=== PATIENT | male | born 1960 | race Caucasian/White ===

== ENCOUNTER 2017-09-27 12:26 | Day surgery (SDC) | payer OTHER ==
[2017-09-27] MEDS ORDERED: Ringers Lactate 1,000 ML IV ONE (12:53)
[2017-09-27] MEDS ORDERED: NA CIT/CITRIC AC 30 ML ORAL UDC ONE (13:03)
[2017-09-27] MEDS ORDERED: NA CIT/CITRIC AC 30 ML ORAL UDC PO ONE (13:08)
[2017-09-27] MEDS ORDERED: LIDOCAINE 1% MPF 5 ML VIAL ONE (14:50)
[2017-09-27] MEDS ORDERED: PROPOFOL 200 MG/20 ML VIAL IV ONE (14:50)
[2017-09-27] MEDS ORDERED: MIDAZOLAM HCL 2 MG/2 ML INJ ONE (14:50)
[2017-09-27] MEDS ORDERED: FENTANYL CITR 100 MCG/2 ML ONE (14:57)
--- NOTE | 2017-09-28 01:44 | OP ---
Date of Procedure: 09/27/2017 Surgeon: Arturo Santiago MD Procedure Performed: Colonoscopy. Anesthesia: By Department of Anesthesia. Indication: History of polyp. Premedication: Per Anesthesia. Complexity: Moderate. Tolerance To Sedation: Excellent. [place] Preps: Right 2/3, mid 2/3, left 2/3, total 6/. Procedure In Detail: The procedure, possible complications, and alternatives including, but not limi tip to the possibility of bleeding, perforation, tear, infection, sepsis, need for surgery, need for blood transfusion, anesthesia-related problem including rare fatalities in infallibility and guarante e of any medical tests had been explained to the patient. Informed consent was obtained. He was teagan arely in left lateral position. After appropriate level of anesthesia, digital anorectal examination w as within normal range. Forward view retroflexion in this area was fine. Mucosa of the sigmoid colon, descending colon, splenic flexure, transverse colon, hepatic flexure, as cending colon, cecum, and ileocecal valve area appeared to be generally within normal range. Repeate d visualization did not reveal any additional information or diagnosis. Having done the above procedure in a safe, diligent, and satisfactory manner, endoscope and rest of t he endoscopic accessories were removed. The patient's oropharyngeal area was cleaned out in a respec tful manner. The patient has been sent in excellent condition to postoperative recovery and from the re to the home. Impression: Normal colonoscopy to cecum. Plan: Follow up in office. Followup colonoscopy in 5 years unless symptoms change. Complications: None. The patient tolerated the procedure well. Disposition: As above. ALEXY/CHENG Voice ID: [id number] Report ID: [id number]
== END 2017-09-27 15:55 | disposition home or self-care (01) ==
LOC: ENDO 12:26
PROVIDERS: ATTEND Internal Medicine Gastroenterology
PROC: 0DJD8ZZ Inspection of Lower Intestinal Tract, Via Natural or Artificial Opening Endoscopic (ICD-10-PCS; principal; 2017-09-27 13:45)
DX: Z86.010 Personal history of colon polyps (principal); K21.9 Gastro-esophageal reflux disease without esophagitis
CPT/HCPCS: 45378; J2250; J3010

== ENCOUNTER 2023-03-05 09:27 | Emergency (ER) | payer OTHER ==
[2023-03-05] MEDS ORDERED: CEFAZOLIN SODIUM 1 GM/VIAL ONE (09:49)
[2023-03-05] MEDS ORDERED: MORPHINE 4 MG/ML SYR ONE (09:50)
[2023-03-05] MEDS ORDERED: TDAP (DIPHTH,PERTUSS(ACELL),TET VAC) 0.5 ML VIAL IMVAC ONE (09:50)
[2023-03-05] MEDS ORDERED: NA CHLORIDE 0.9% 1,000 ML ONE (09:50)
[2023-03-05] MEDS ORDERED: ONDANSETRON 4 MG/2 ML VIAL ONE (09:50)
[2023-03-05] MEDS ORDERED: LORazepam 2 MG/ML VIAL ONE (09:50)
[2023-03-05] MEDS ORDERED: NA CHLORIDE 0.9% 100 ML ONE (09:50)
--- NOTE | 2023-03-05 09:51 | ER ---
Nurse's Notes [facility] Name: Kip Mccallum Age: 62 yrs Sex: Male : 1960 Arrival Date: 03/05/2023 Time: 09:27 Bed 3 Private MD: Diagnosis: Laceration of radial artery at wrist and hand level of right arm, initial encounter;Hypotension, unspecified-resolved, secondary to acute blood loss Presentation: 03/05 09:29 Chief complaint: EMS states: toned out to patient home for laceration to right wrist- ld1 glass bookcase fell over onto patient. Hit head and body. C/O pain to right wrist. Pt arrived via EMS with self tourniquet to right AC. Dr. Zaman at bedside with patient. Coronavirus screen: At this time, the client does not indicate any symptoms associated with coronavirus-19. Ebola Screen: No symptoms or risks identified at this time. Initial Sepsis Screen: Does the patient meet any 2 criteria? No. Patient's initial sepsis screen is negative. Does the patient have a suspected source of infection? No. Patient's initial sepsis screen is negative. Risk Assessment: Do you want to hurt yourself or someone else? Patient reports no desire to harm self or others. Onset of symptoms was March 05, 2023. 09:29 Method Of Arrival: EMS: [facility] ld1 09:29 Acuity: JAZZY 2 ld1 Triage Assessment: 09:31 General: Appears in no apparent distress. uncomfortable, Behavior is cooperative, ld1 anxious. Pain: Complains of pain in right wrist Pain does not radiate. Pain currently is 10 out of 10 on a pain scale. Quality of pain is described as throbbing, Pain began suddenly. EENT: No signs and/or symptoms were reported regarding the EENT system. Neuro: Level of Consciousness is awake, alert, obeys commands, Oriented to person, place, time, situation. Cardiovascular: Capillary refill < 3 seconds Patient's skin is warm and dry. Rhythm is sinus rhythm. Respiratory: Airway is patent Respiratory effort is even, unlabored. GI: Abdomen is round non-distended. : No signs and/or symptoms were reported regarding the genitourinary system. Derm: No signs and/or symptoms reported regarding the dermatologic system. Musculoskeletal: No signs and/or symptoms reported regarding the musculoskeletal system. Injury Description: Laceration sustained to right wrist is clean, bleeding profusely, was sustained 1-2 hours ago. 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 - Social history:: Smoking status: Patient denies any tobacco usage or history of. Patient/guardian denies using alcohol. Screenin:33 [facility] ED Fall Risk Assessment (Adult) History of falling in the last 3 months, ld1 including since admission No falls in past 3 months (0 pts). Abuse screen: Denies threats or abuse. Denies injuries from another. Nutritional screening: No deficits noted. Tuberculosis screening: No symptoms or risk factors identified. Assessment: 09:33 Reassessment: See triage assessment. ld1 10:01 Reassessment: No changes from previously documented assessment. EMS at bedside with ld1 family transporting patient to medical center. ERP removed cable tourniquet from right AC. EMS applied new tourniquet for patient transport to medical center. Bleeding controlled at this time - applied pressure dressing to right wrist with wrist splint. 10:01 Reassessment: Patient appears in no apparent distress at this time. Patient is alert, ld1 oriented x 3, equal unlabored respirations, skin warm/dry/pink. Vital Signs: 09:29 BP 134 / 92; Pulse 100; Resp 12; Temp 97.5(O); Pulse Ox 100% on R/A; Weight 75.3 kg; ld1 Height 5 ft. 8 in. ; Pain 10/10; 09:55 Pulse 89; Resp 18; Pulse Ox 100% on R/A; ld1 10:01 BP 142 / 99; Pulse 89; Resp 20; Pulse Ox 100% on R/A; Pain 7/10; ld1 09:29 Body Mass Index 25.24 (75.30 kg, 172.72 cm) ld1 09:29 Pain Scale: Adult ld1 10:01 Pain Scale: Adult ld1 ED Course: 09:28 Patient arrived in ED. bd 09:28 Tej Frost MD is Attending Physician. nohemi 09:29 Sury Manrique, HERVE is Primary Nurse. ld1 09:31 Triage completed. ld1 09:31 Arm band placed on. EKG completed in triage. Results shown to MD. ld1 09:33 Patient has correct armband on for positive identification. Placed in gown. Bed in low ld1 position. Call light in reach. Side rails up X2. technical professional on. Pulse ox on. NIBP on. Door closed. Noise minimized. Warm blanket given. 09:33 Inserted saline lock: 18 gauge in left forearm, using aseptic technique. Blood ld1 collected. Maintain EMS IV. Dressing intact. Good blood return noted. Site clean \T\ dry. Gauge \T\ site: 18G LAC. 09:51 Hand Right 3 View In Process Unspecified. EDMS 09:53 Chest Single View XRAY In Process Unspecified. EDMS 10:05 No provider procedures requiring assistance completed. Patient transferred, IV remains ld1 in place. Administered Medications: 09:46 Drug: Ativan IVP 1 mg IVP once Route: IVP; Site: left forearm; ld1 09:51 Drug: Tetanus Toxoid,Adsorbed IM 0.5 ml IM once; Provide Vaccine Information Statement ld1 (VIS). {Chicken Cleaner: [employer]; Exp: Sat Oct 24 2024; Lot #: [id number]; Series: 1 of 1; Patient Consent: Obtained; Date/Time: ; Source Name: Kip Mccallum; Source Relationship: Self; Address Information: [address] [place] [address] [address] [place] [address]; ; Education: Provided; VIS Presented Date: ; VIS Publication: Tetanus/Diphtheria (Td) Vaccine VIS 09/11/2016 (historic)} Route: IM; Site: left deltoid; 09:54 Drug: morphine IVP or IV 4 mg IVP once over 4 mins Route: IVP; Infused Over: 4 mins; ld1 Site: left forearm; 09:54 Drug: Ondansetron IVP 4 mg IVP once; over 2 minutes Route: IVP; Site: left antecubital; ld1 09:54 Drug: NS 0.9% IV 1000 ml IV at 1 bolus Per protocol; 1000 mL bolus Route: IV; Rate: 1 ld1 bolus; Site: left forearm; 09:55 Drug: ceFAZolin IVPB 2 grams IVPB once over 30 mins; (mix in 100 mL NS) Route: IVPB; ld1 Infused Over: 30 mins; Site: left forearm; Medication: 10:05 Vaccine Information Statement (VIS) provided today. Questions and/or concerns ld1 addressed. VIS edition date: March 05, 2023. Outcome: 09:51 ER care complete, transfer ordered by MD. song 10:05 Transferred by ground EMS to [facility], ld1 10:05 Condition: stable 10:05 Instructed on the need for transfer, 10:16 Patient left the ED. ld1 Signatures: Dispatcher [employer] EDBatsheva Campos Corey, MD MD cha Sims, Lauren, HERVE RN ld1
--- NOTE | 2023-03-05 09:51 | EDPHYS ---
Physician Documentation [facility] Name: Kip Mccallum Age: 62 yrs Sex: Male : 1960 Arrival Date: 03/05/2023 Time: 09:27 Bed 3 Private MD: ED Physician Tej Frost HPI: 03/05 09:34 This 62 yrs old Male presents to ER via EMS with complaints of right wrist nohemi laceration. 09:34 The patient or guardian reports decreased range of motion, pain. The complaints affect nohemi the. Historical: - Allergies: 09:31 NSAIDS; ld1 - PMHx: 09:31 BPH; chronic back pain; Anxiety; ld1 - Immunization history:: Adult Immunizations up to date. - Social history:: Smoking status: Patient denies any tobacco usage or history of. Patient/guardian denies using alcohol. ROS: 09:44 Constitutional: Negative for fever, chills, and weight loss, Eyes: Negative for injury, nohemi pain, redness, and discharge, ENT: Negative for injury, pain, and discharge, Neck: Negative for injury, pain, and swelling, Cardiovascular: Negative for chest pain, palpitations, and edema, Respiratory: Negative for shortness of breath, cough, wheezing, and pleuritic chest pain, Abdomen/GI: Negative for abdominal pain, nausea, vomiting, diarrhea, and constipation, Back: Negative for injury and pain, : Negative for injury, bleeding, discharge, and swelling, Skin: Negative for injury, rash, and discoloration, Neuro: Negative for headache, weakness, numbness, tingling, and seizure, Psych: Negative for depression, anxiety, suicide ideation, homicidal ideation, and hallucinations, Allergy/Immunology: Negative for hives, rash, and allergies, Endocrine: Negative for neck swelling, polydipsia, polyuria, polyphagia, and marked weight changes, Hematologic/Lymphatic: Negative for swollen nodes, abnormal bleeding, and unusual bruising, 09:44 MS/extremity: Positive for decreased range of motion, laceration, pain, tenderness, of the right wrist, Exam: :44 Hand exam: Exam is positive for decreased range of motion, laceration, pulse nohemi abnormalities, tenderness, ROM: limited active range of motion due to pain, limited passive range of motion due to pain, Circulation is intact in all extremities. numbness, decreased sensation, Compartment Syndrome exam of affected extremity: is normal. Tendon exam: unable to examine 09:44 Head/Face: Normocephalic, atraumatic. Eyes: Pupils equal round and reactive to light, extra-ocular motions intact. Lids and lashes normal. Conjunctiva and sclera are non-icteric and not injected. Cornea within normal limits. Periorbital areas with no swelling, redness, or edema. ENT: Nares patent. No nasal discharge, no septal abnormalities noted. Tympanic membranes are normal and external auditory canals are clear. Oropharynx with no redness, swelling, or masses, exudates, or evidence of obstruction, uvula midline. Mucous membranes moist. Neck: Trachea midline, no thyromegaly or masses palpated, and no cervical lymphadenopathy. Supple, full range of motion without nuchal rigidity, or vertebral point tenderness. No Meningismus. Chest/axilla: Normal chest wall appearance and motion. Nontender with no deformity. No lesions are appreciated. Cardiovascular: Regular rate and rhythm with a normal S1 and S2. No gallops, murmurs, or rubs. Normal PMI, no JVD. No pulse deficits. Respiratory: Lungs have equal breath sounds bilaterally, clear to auscultation and percussion. No rales, rhonchi or wheezes noted. No increased work of breathing, no retractions or nasal flaring. Abdomen/GI: Soft, non-tender, with normal bowel sounds. No distension or tympany. No guarding or rebound. No evidence of tenderness throughout. Back: No spinal tenderness. No costovertebral tenderness. Full range of motion. Male : Normal genitalia with no discharge or lesions. Neuro: Awake and alert, GCS 15, oriented to person, place, time, and situation. Cranial nerves II-XII grossly intact. Motor strength 5/5 in all extremities. Sensory grossly intact. Cerebellar exam normal. Normal gait. Psych: Awake, alert, with orientation to person, place and time. Behavior, mood, and affect are within normal limits. 09:44 Constitutional: The patient appears well developed, Vital Signs: 09:29 BP 134 / 92; Pulse 100; Resp 12; Temp 97.5(O); Pulse Ox 100% on R/A; Weight 75.3 kg; ld1 Height 5 ft. 8 in. ; Pain 10/10; 09:55 Pulse 89; Resp 18; Pulse Ox 100% on R/A; ld1 10:01 BP 142 / 99; Pulse 89; Resp 20; Pulse Ox 100% on R/A; Pain 7/10; ld1 09:29 Body Mass Index 25.24 (75.30 kg, 172.72 cm) ld1 09:29 Pain Scale: Adult ld1 10:01 Pain Scale: Adult ld1 MDM: 09:28 Patient medically screened. [facility] 09:46 Differential diagnosis: open fracture, contusion, tendonitis. Data reviewed: vital nohemi signs, nurses notes, lab test result(s), EKG, radiologic studies, plain films. Consideration of Admission/Observation Escalation of care including admission/observation considered. I considered the following discharge prescriptions or medication management in the emergency department Medications were administered in the Emergency Department. See MAR. Test considered but Not performed: CT: no ct angiogram. Historians other than the Patient: EMS: ems well informed. Care significantly affected by the following chronic conditions: anxiety, bph,cbp. Counseling: I had a detailed discussion with the patient and/or guardian regarding the historical points, exam findings, and any diagnostic results supporting the discharge/admit diagnosis, lab results, radiology results, the need to transfer to another facility, for higher level of care, [facility] does not immediately have the required specialist. 03/05 09:31 Order name: CBC with Diff [facility] 03/05 09:31 Order name: Comprehensive Metabolic Panel [facility] 03/05 09:31 Order name: PT-INR [facility] 03/05 09:31 Order name: Chest Single View XRAY [facility] 03/05 09:51 Order name: Hand Right 3 View EDMS 03/05 09:31 Order name: EKG; Complete Time: 09:32 [facility] 03/05 09:31 Order name: EKG - Nurse/Tech; Complete Time: 09:34 [facility] 03/05 09:31 Order name: Wrist Splint; Complete Time: 09:32 [facility] 03/05 09:33 Order name: NPO; Complete Time: 09:34 [facility] Administered Medications: 09:46 Drug: Ativan IVP 1 mg IVP once Route: IVP; Site: left forearm; ld1 09:51 Drug: Tetanus Toxoid,Adsorbed IM 0.5 ml IM once; Provide Vaccine Information Statement ld1 (VIS). {Manager Child: [employer]; Exp: Sat Oct 24 2024; Lot #: [id number]; Series: 1 of 1; Patient Consent: Obtained; Date/Time: ; Source Name: Kip Mccallum; Source Relationship: Self; Address Information: [address] [place] [address] [address] [place] [address]; ; Education: Provided; VIS Presented Date: ; VIS Publication: Tetanus/Diphtheria (Td) Vaccine VIS 09/11/2016 (historic)} Route: IM; Site: left deltoid; 09:54 Drug: morphine IVP or IV 4 mg IVP once over 4 mins Route: IVP; Infused Over: 4 mins; ld1 Site: left forearm; 09:54 Drug: Ondansetron IVP 4 mg IVP once; over 2 minutes Route: IVP; Site: left antecubital; ld1 09:54 Drug: NS 0.9% IV 1000 ml IV at 1 bolus Per protocol; 1000 mL bolus Route: IV; Rate: 1 ld1 bolus; Site: left forearm; 09:55 Drug: ceFAZolin IVPB 2 grams IVPB once over 30 mins; (mix in 100 mL NS) Route: IVPB; ld1 Infused Over: 30 mins; Site: left forearm; Disposition Summary: 03/05/23 09:51 Transfer Ordered Notes: Transfer Location: [facility] nohemi Reason: Higher level of care nohemi Condition: Stable nohemi Problem: new nohemi Symptoms: have improved nohemi Accepting Physician: to [facility](03/05/23 10:16) ld1 Diagnosis - Laceration of radial artery at wrist and hand level of right arm, initial encounter nohemi - Hypotension, unspecified - resolved, secondary to acute blood loss nohemi Forms: - Medication Reconciliation Form nohemi - SBAR form nohemi Critical care time excluding procedures: 09:48 Critical care time: Bedside Care: 20 minutes, Consultation: 15 minutes, Family nohemi Intervention: 10 minutes. Total time: 45 minutes Signatures: Dispatcher [employer] EDTej Li MD MD cha Sims, Lauren RN RN ld1 Corrections: (The following items were deleted from the chart) 09:51 09:32 Wrist Right 3 View+RAD.RAD.BRZ ordered. EDVT EDMS 10:16 09:51 [facility] nohemi ld1
[2023-03-05 10:19] LABS: Absolute Lymphocytes (CBC) 2.4 K/uL (0.7-4.9); Hematocrit 34.5 % (39.6-49.0); Lymphocytes % 17.6 % (15.3-44.8); MCV 92.5 fL (80-100); MPV 8.4 fL (7.6-11.3); Platelets 277 thou/uL (152-406); RBC Red Blood Cell Count 3.73 M/uL (4.33-5.43)
[2023-03-05 10:21] VITALS: TEMP 97.5; O2SAT 100
--- NOTE | 2023-03-05 10:22 | RAD REPORT ---
[facility] DES[facility]2023 9:51 am CLINICAL HISTORY: COUGH COMPARISON: Chest Pa And Lat (2 Views) dated 11/22/2016; CHEST PA AND LAT 2 VIEW dated 02/19/2015 TECHNIQUE: Portable AP view of the chest. FINDINGS: The lungs are clear. No pneumothorax or effusion. The cardiomediastinal contours are unre markable. IMPRESSION: No acute cardiopulmonary process.
[2023-03-05 10:24] VITALS: BP 142/99
[2023-03-05 10:26] LABS: Protime INR 1.05
--- NOTE | 2023-03-05 10:34 | RAD REPORT ---
EXAM DESCRIPTION: RAD - Hand Right 3 View - 03/05/2023 9:51 am CLINICAL HISTORY: PAIN COMPARISON: No comparisons TECHNIQUE: Right hand, 3 views. FINDINGS: No fracture is identified. Dressing/splints limit evaluation. Soft tissue swelling and irregularity with some soft tissue gas along the anterior aspect of the wris t. Advanced arthritic changes with some subchondral collapse at the scaphoid head and proximal aspect of the capitate. There is no dislocation or periosteal reaction noted. No foreign body or other soft tissue abnormalit y. IMPRESSION: No acute osseus abnormality. Soft tissue swelling and irregularity with some soft tissue gas along the anterior aspect of the wrist compatible with a laceration. Advanced arthritic changes of the carpus as above.
[2023-03-05 10:42] LABS: Albumin 2.8 g/dL (3.4-5.0); Bilirubin Total 0.5 mg/dL (0.2-1.0); Protein, Total 5.7 g/dL (6.4-8.2)
--- NOTE | 2023-03-05 15:17 | CON ---
Date of Consultation: 03/05/2023 Reason For Consultation: Laceration, right wrist. History Of Present Illness: The patient is a 62-year-old gentleman, who presented to the emergency r oom after having a large piece of glass on his head and right wrist. There was active bleeding noted from the right wrist. The patient put a tourniquet by himself. EMS was called and they brought him in. EMS states that they were there within 5-10 minutes of the call. The patient is awake, alert. He had hypotension at the scene. There is no evidence of any active bleeding since the patient has been in our emergency room. There is no bleeding from the laceration on the scalp either. The patie nt is complaining of pain on the head and the right wrist and the right arm where the tourniquet is. No other evidence of injury. The patient is breathing well. No neck pain, no difficulty breathing, no chest pain, and no abdominal pain, and all other extremities are within normal limits. Review of Systems: Otherwise unremarkable. Past Medical History: Anxiety, chronic back pain, BPH. Allergies: NSAIDS. Social History: The patient does not smoke or drink alcohol. Family History: Noncontributory. Physical Examination: Vital Signs: On admission were heart rate of 100, blood pressure 134/92, respirations of 12, tempera ture of 97.5. General: The patient is awake, alert, oriented x3. Head and Neck: There is approximately a 3 cm laceration on the right side of the scalp, superficial in nature. No bleeding noted. No bone palpated. No foreign body seen. Trachea is midline. There is no JVD. Throat is clear. Neck is supple. Chest: Clear. Heart: S1, S2. Abdomen: Soft. Extremity: The left upper extremity and lower extremity are within normal limits. On the right uppe r arm, there is a tourniquet in place just above the elbow and then in the right wrist, there is a dr essing which was taken off and there is a laceration on the radial side of the wrist approximately 3 cm. There is no active bleeding. There is a spot at the edge of the wound. There is no definitive nerve damage seen, however, bone is palpable. There is tenderness on that side with the hand. The p atient can feel sensation on the radial, ulnar, and median nerve distribution. The patient is moving all 5 digits, although movement with the thumb causes him great discomfort. He is able to move it s lightly however. Laboratory Data: X-ray does not show any evidence of fracture. Assessment: Complex laceration with possible injury to tendons, radial artery, and please note that the tourniquet was taken down. There was no active bleeding at that time when Dr. Frost took the tourniquet off. So, assessment is complex laceration with injury possibly to the median nerve, radia l artery and tendons in the region. Recommendations: Would be to stabilize the patient, fluids, and then transfer the patient to a [facility] care to have a hand surgeon available. From General Surgery standpoint, the patient is stable en ough for discharge and transfer. /MODL Voice ID: [id number] Report ID: [id number]
--- NOTE | 2023-03-06 16:41 | EKG ---
Test Date: 2023-03-05 Test Time: 09:36:11 Business Lawyer: UVALDO MEASUREMENT RESULTS: Intervals: Rate: 91 TN: 154 QRSD: 82 QT: 338 QTc: 415 [place]: P: 79 TN: 154 QRS: 57 T: 66 INTERPRETIVE STATEMENTS: Normal sinus rhythm Normal ECG Compared to ECG 11/22/2016 12:12:18 Sinus arrhythmia no longer present Electronically Signed On 03-06-23 16:38:33 CDT by Alejandro Marquez
== END 2023-03-05 10:16 | disposition short-term general hospital (02) ==
LOC: ER 09:27
DX: S65.111A Laceration of radial artery at wrist and hand level of right arm, initial encounter (principal); Z23 Encounter for immunization; Z88.6 Allergy status to analgesic agent
CPT/HCPCS: 93005; 85025; 36415; 85610; 80053; 71045; 73130; 90471; 99285; J2405; J7030; J0690